=== PATIENT | male | born 1965 | race Caucasian/White ===

== ENCOUNTER 2022-05-22 20:56 | Inpatient (IN) | payer BC ==
[~2022-05-22] VITALS: Ht 177.8 cm; Wt 106.8 kg
[2022-05-22 21:39] LABS: BASOPHILS # (AUTO) 0.1 X10'3 (0-0.2); EOSINOPHILS # (AUTO) 0.4 X10'3 (0-0.9); EOSINOPHILS % (AUTO) 5.5 % (0-6); HEMATOCRIT 47.6 % (42.0-52.0); LYMPHOCYTES # (AUTO) 2.2 X10'3 (1.1-4.8); LYMPHOCYTES % (AUTO) 33.2 % (21-51); MEAN CORPUSCULAR HEMOGLOBIN 27.2 PG (27.0-31.0); MEAN CORPUSCULAR HGB CONC 33.6 g/dL (33.0-36.5); MEAN CORPUSCULAR VOLUME 81.1 FL (78-98); MEAN PLATELET VOLUME 7.1 FL (7.4-10.4); MONOCYTES # (AUTO) 0.4 X10'3 (0-0.9); NEUTROPHILS # (AUTO) 3.6 X10'3 (1.8-7.7); NEUTROPHILS % (AUTO) 54.3 % (42-75); PLATELET COUNT 245 X10'3 (140-440); RED BLOOD COUNT 5.87 X10'6 (4.70-6.10); RED CELL DISTRIBUTION WIDTH 15.4 % (11.5-14.5); WHITE BLOOD COUNT 6.5 X10'3 (4.5-11.0)
[2022-05-22 21:54] LABS: ALANINE AMINOTRANSFERASE 66 U/L (12-78); ALBUMIN/GLOBULIN RATIO 1.1 (1.1-1.5); ALKALINE PHOSPHATASE 61 IU/L (46-116); ANION GAP 8 (8-16); ASPARTATE AMINO TRANSFERASE 23 U/L (10-37); BILIRUBIN,TOTAL 0.3 MG/DL (0.1-1.0); BLOOD UREA NITROGEN 17 MG/DL (7-18); BUN/CREATININE RATIO 17.9 (5.4-32.0); CALCIUM 10.6 MG/DL (8.5-10.1); CHLORIDE 107 MMOL/L (99-107); CREATININE 0.95 MG/DL (0.60-1.10); GLUCOSE 117 MG/DL (70-104); POTASSIUM 4.2 MMOL/L (3.5-5.1); SODIUM 142 MMOL/L (135-145); TOTAL CARBON DIOXIDE 27.5 MMOL/L (24-32); TOTAL PROTEIN 7.5 G/DL (6.4-8.2); eGFR 81 ML/MIN
[2022-05-23] VITALS (8 sets, daily range): BP systolic 103–132; BP diastolic 60–88
[2022-05-23] MEDS ORDERED: ROSU5TAB12 PO (05:37)
[2022-05-23] MEDS ORDERED: PANT40TA54 PO (05:37)
[2022-05-23] MEDS ORDERED: VENL75CA61 PO (05:37)
[2022-05-23] MEDS ORDERED: LISI10TA27 PO (05:37)
[2022-05-23] MEDS ORDERED: EMPA1TAB9 PO (05:37)
[2022-05-23] MEDS ORDERED: CHOL20003 PO (05:37)
[2022-05-23] MEDS ORDERED: LEVO50TA8 PO (05:37)
[2022-05-23] MEDS ORDERED: ASPI-1071 PO (05:38)
[2022-05-23] MEDS ORDERED: HEPARIN SOD,PORK IN 0.45% NACL 250 ML IV SCH (05:45)
[2022-05-23] MEDS ORDERED: heparin 10,000 units/1 ML INJ IV ONE (05:45)
[2022-05-23] MEDS ORDERED: heparin 10,000 units/1 ML INJ IV PRN (05:45)
[2022-05-23] MEDS ORDERED: aspirin 81mg tab.chew PO ONE (05:45)
[2022-05-23] MEDS ORDERED: POTASSIUM BICARB 20meq eff tab 20 MEQ TABLET.EFF PO PRN ×2 (06:10)
[2022-05-23] MEDS ORDERED: magnesium Cl slow-release 64mg tablet PO PRN (06:10)
[2022-05-23] MEDS ORDERED: PERFLUTREN PROTEIN-A MICROSPHR (Optison) 0.22 MG/ML 3ML VIAL IV ONE (06:10)
[2022-05-23] MEDS ORDERED: ondansetron/PF 4mg/2ml inj IV PRN (06:10)
[2022-05-23] MEDS ORDERED: potassium CL 10mEq/100ml bag 100 ML IV PRN (06:10)
[2022-05-23] MEDS ORDERED: acetaminophen 325mg tablet PO PRN (06:10)
[2022-05-23] MEDS ORDERED: normal saline 1000ml 1,000 ML IV SCH (06:10)
[2022-05-23] MEDS ORDERED: magnesium hydroxide 30ml (MOM) UD suspension PO PRN (06:10)
[2022-05-23] MEDS ORDERED: mag hydrox/Alum hydrox/simeth 30ml oral suspension PO PRN (06:10)
[2022-05-23] MEDS ORDERED: magnesium 4gm in 100ml NS 100 ML IV PRN (06:10)
[2022-05-23] MEDS ORDERED: magnesium 2GM in 50ml NS 50 ML IV PRN (06:10)
[2022-05-23] MEDS ORDERED: MESSAGE TO PHARMACY PO ONE (06:15)
[2022-05-23] MEDS ORDERED: dextrose 50%-water 50ml dispensing syringe IV PRN ×2 (06:15)
[2022-05-23] MEDS ORDERED: DEXTROSE 15 GM of carb/4 tabs (each vial/BOTTLE has 4 tablets) PO PRN ×2 (06:15)
[2022-05-23] MEDS ORDERED: insulin Lispro (HumaLOG) vial - multi-dose SQ SCH (06:15)
[2022-05-23] MEDS ORDERED: glucagon, human recombinant 1mg kit SUBCUT PRN (06:15)
[2022-05-23] MEDS ORDERED: levoTHYROXINE 25mcg tablet PO SCH (07:00)
[2022-05-23 07:04] LABS: APTT 27 SECONDS (22-32)
[2022-05-23 07:41] LABS: BASOPHILS # (AUTO) 0.1 X10'3 (0-0.2); EOSINOPHILS # (AUTO) 0.4 X10'3 (0-0.9); EOSINOPHILS % (AUTO) 6.4 % (0-6); HEMATOCRIT 46.1 % (42.0-52.0); HEMOGLOBIN 15.2 g/dl (14.0-17.9); LYMPHOCYTES % (AUTO) 34.3 % (21-51); MEAN CORPUSCULAR HEMOGLOBIN 26.8 PG (27.0-31.0); MEAN CORPUSCULAR HGB CONC 32.9 g/dL (33.0-36.5); MEAN CORPUSCULAR VOLUME 81.5 FL (78-98); MEAN PLATELET VOLUME 7.7 FL (7.4-10.4); MONOCYTES # (AUTO) 0.6 X10'3 (0-0.9); MONOCYTES % (AUTO) 9.4 % (2-12); NEUTROPHILS # (AUTO) 2.8 X10'3 (1.8-7.7); NEUTROPHILS % (AUTO) 47.9 % (42-75); PLATELET COUNT 214 X10'3 (140-440); RED BLOOD COUNT 5.65 X10'6 (4.70-6.10); RED CELL DISTRIBUTION WIDTH 15.8 % (11.5-14.5); WHITE BLOOD COUNT 5.9 X10'3 (4.5-11.0)
[2022-05-23 07:58] LABS: HEMOGLOBIN A1C 6.8 % (4.5-6.2)
[2022-05-23] MEDS ORDERED: atorvastatin 20mg tablet PO SCH (08:00)
[2022-05-23] MEDS ORDERED: metoprolol tartrate 12.5mg (1/2 tablet) PO SCH (08:00)
[2022-05-23] MEDS ORDERED: K and/or MAG REPLACEMENT MC SCH (08:00)
[2022-05-23] MEDS ORDERED: aspirin 81mg, enteric-coated 1 TAB TABLET.DR PO SCH (08:00)
[2022-05-23] MEDS ORDERED: lisinopril 10 MG tablet PO SCH (08:00)
[2022-05-23] MEDS ORDERED: venlafaxine XR 75mg capsule (Q24H) PO SCH (08:00)
[2022-05-23] MEDS ORDERED: aspirin 325mg tablet, delayed-release (Ecotrin) PO SCH (08:00)
[2022-05-23] MEDS ORDERED: pantoprazole 40mg Tablet.DR PO SCH (08:00)
[2022-05-23] MEDS ORDERED: docusate sod 100mg capsule PO SCH (08:00)
[2022-05-23 08:03] LABS: MAGNESIUM 2.3 MG/DL (1.5-2.4); POTASSIUM 3.8 MMOL/L (3.5-5.1)
[2022-05-23] MEDS ORDERED: regadenoson 0.4mg/5ml syringe IV PRN (08:20)
[2022-05-23] MEDS ORDERED: nitroGLYCERIN 0.4mg SUBLingual tab SL PRN (08:20)
[2022-05-23] MEDS ORDERED: aminophylline 500mg/20ml vial IV PRN (08:20)
[2022-05-23] MEDS ORDERED: metoprolol tartrate 1mg/ml inj IV PRN (08:20)
--- NOTE | 2022-05-23 09:35 | NUR ---
taken to stress test
[2022-05-23] MEDS ORDERED: regadenoson 0.4mg/5ml syringe IV ONE (10:04)
--- NOTE | 2022-05-23 11:52 | NUR ---
repeat ptt collected at si time, ECHO at bedside
--- NOTE | 2022-05-23 12:02 | NUR ---
paged at ths time to confirm diet order
--- NOTE | 2022-05-23 12:22 | NUR ---
per hospitalist ECHO and stress test were normal, advised to DC heparin and will be placing d/c orders soon
== END 2022-05-23 13:18 | disposition home or self-care (01) | DRG 282 ==
LOC: ER 20:57 → ED HOLD 05-23 06:10
PROVIDERS: ADMIT Internal Medicine; ATTEND Family Medicine
PROC: 4A02XM4 Measurement of Cardiac Total Activity, External Approach (ICD-10-PCS; principal; 2022-05-23)
PROC: 3E033HZ Introduction of Radioactive Substance into Peripheral Vein, Percutaneous Approach (ICD-10-PCS; 2022-05-23)
DX: I21.4 Non-ST elevation (NSTEMI) myocardial infarction (principal); E11.9 Type 2 diabetes mellitus without complications; I10 Essential (primary) hypertension; Z86.16 Personal history of COVID-19; Z88.0 Allergy status to penicillin; Z88.5 Allergy status to narcotic agent; Z79.899 Other long term (current) drug therapy
CPT/HCPCS: 36415; 71045; 78452; 80053; 83036; 83735; 83880; 84132; 84484; 85025; 85610; 85730; 87081; 93005; 93017; 93306; 99285; A9500; G0378; J1644; J1815; J2785; J7030